=== PATIENT | male | born 1980 | race Caucasian/White ===

== ENCOUNTER → 2022-04-05 | Outpatient (CLI) | payer OTHER | LOC: RAD 12:31 | DX: S62.366D Nondisplaced fracture of neck of fifth metacarpal bone, right hand, subsequent encounter for fracture with routine healing (principal); X58.XXXD Exposure to other specified factors, subsequent encounter ==

== ENCOUNTER 2023-05-28 15:30 | Emergency (ER) | payer OTHER ==
[~2023-05-28] VITALS: Ht 182.9 cm; Wt 127.3 kg
[2023-05-28 16:17] LABS: BASO # 0.07 K/mm3 (0.02-0.10); EOS # 0.13 K/mm3 (0.04-0.40); EOS % 1.9 % (0.0-4.0); HEMOGLOBIN 14.2 g/dL (13.5-18.0); LYMPH# 2.14 K/mm3 (1.50-4.00); MEAN CELL VOLUME 87 fl (78-100); MEAN CORPUSCULAR HEMOGLOBIN 29 pg (27-31); MEAN CORPUSCULAR HGB CONC 33 g/dL (33-37); MEAN PLATELET VOLUME 10.7 fl (7.4-10.4); MONO # 0.58 K/mm3 (0.20-0.80); NEU # 4.04 K/mm3 (1.40-6.50); PLATELET COUNT 200 K/mm3 (130-400); RED BLOOD COUNT 4.97 M/mm3 (4.20-5.60); RED CELL DISTRIBUTION WIDTH 12.8 % (11.5-14.5)
[2023-05-28 16:24] LABS: ALBUMIN 4.5 g/dL (3.5-5.0)
[2023-05-28 16:26] LABS: CALCIUM 10.1 mg/dL (8.3-10.5)
[2023-05-28 16:27] LABS: TOTAL PROTEIN 7.4 g/dL (6.4-8.3)
[2023-05-28 16:29] LABS: TOTAL BILIRUBIN 0.6 mg/dL (0.2-1.2)
[2023-05-28] MEDS ORDERED: Iohexol 300 - 10 ML VIAL IV ONE (16:40)
[2023-05-28 17:09] VITALS: BP 161/117
== END 2023-05-28 17:11 | disposition home or self-care (01) ==
LOC: ED 15:30
PROVIDERS: Physician Assistant
DX: I10 Essential (primary) hypertension (principal)
CPT/HCPCS: Q9967

== ENCOUNTER → 2023-08-01 | Outpatient (CLI) | payer OTHER | LOC: RAD 13:41 → LAB 13:41 | DX: Z13.1 Encounter for screening for diabetes mellitus (principal) ==

== ENCOUNTER → 2024-06-09 | Outpatient (CLI) | payer OTHER ==
[2024-06-09 08:52] LABS: CALCIUM 9.5 mg/dL (8.3-10.5)
== END ==
LOC: LAB 08:29
PROVIDERS: Family Medicine
DX: I10 Essential (primary) hypertension (principal)